=== PATIENT | male | born 1965 | race Caucasian/White ===

== ENCOUNTER 2016-12-03 14:00 | Inpatient (IN) | payer OTHER ==
--- NOTE | ~2016-12-03 | HP ---
History And Physical [address] [address] NAME: NILSA MERRILL : 65 STATUS : ADM IN [facility]#: [id number] AGE: 51 ADM/REG DATE : 12/03/16 MR#: [id number] REPORT SERV DATE: 12/03/16 DICTATED BY: DEMETRIUS KLINE DATE: 12/03/16 REPORT STATUS : Draft TRANSCRIBED BY: MODZeke DATE: 12/03/16 DATE OF ADMISSION: 12/03/2016 Seen in CVICU bed 14, transferred from [facility] at the request of Dr. Morejon. HISTORY OF PRESENT ILLNESS: The patient is a 51-year-old white male who last night woke up with pain going down his left side and radiating to his lower back and then mid abdomen. He apparently went to [facility] for help, was seen there, and was discovered to have a dissecting aortic aneurysm. He was transferred this afternoon by helicopter. The exact time of onset was unknown. The patient was placed on multiple drugs for blood pressure control, systolic of 220 to 125. There is no prior history of abdominal surgery adhesions, alcohol abuse, or peritoneal dialysis. No history of stones or immunosuppression. The patient does have a history of hypertension, takes blood pressure medications intermittently. He does smoke. He works at packing clothes. ALLERGIES: NO KNOWN ALLERGIES. REVIEW OF SYSTEMS: Otherwise negative and noncontributory. No history of vomiting, diarrhea, or melena. No endocrine problems. No tumor problems. No evidence of hematuria. All other review of systems negative. FAMILY HISTORY: Mother of what sounds like heart disease and sister of epilepsy and brother in car accident. SOCIAL HISTORY: He does smoke every day. Denies drug use. Denies alcohol use except for 5 drinks a day. The patient lives at home. PHYSICAL EXAMINATION: GENERAL: Currently, the patient is awake, alert, and oriented. VITAL SIGNS: Blood pressure 118/61, pulse 77, and saturation 98. HEENT: Head is normocephalic. Sclerae and conjunctivae are clear. Edentulous. NECK: Supple. Good carotid upstroke bilaterally. CHEST: Clear to auscultation and percussion. No wheezing or rhonchi. CARDIAC: S1 and S2. No murmurs or gallops. ABDOMEN: Soft and nontender. At this time, I could not feel any palpable masses. EXTREMITIES: No clubbing, cyanosis, or edema. Pulses appear to be palpable down below. NEUROLOGIC: Cranial nerves 2 through 12 are intact. Deep tendon reflexes normal. IMAGING STUDIES: No imaging studies accompanied the patient. EKG shows sinus rhythm. Possible right atrial enlargement. LABORATORY DATA: His laboratories show sodium 134, potassium 3.8, chloride 97, CO2 of 24, BUN 17, creatinine 0.9, glucose 141. Total protein 7.1, albumin 3.8, total bilirubin 0.9, alkaline phosphatase 86, AST 19, ALT 18. The patient's troponin was 0.200. H and H History And Physical [address] [address] NAME: NILSA MERRILL : 65 STATUS : ADM IN [facility]#: [id number] AGE: 51 ADM/REG DATE : 12/03/16 MR#: [id number] REPORT SERV DATE: 12/03/16 DICTATED BY: DEMETRIUS KLINE DATE: 12/03/16 REPORT STATUS : Draft TRANSCRIBED BY: MODL DATE: 12/03/16 apparently not done. We will repeat labs here. Awaiting imaging studies. Dr. Morejon is aware of the patient. RP/ALVAREZL Demetrius Kline M.D. / [id number] CC: Demetrius Kline M.D.
--- NOTE | ~2016-12-03 | CN ---
Consultation Report [facility] [address] [place]. [address] NAME: NILSA MERRILL : 65 STATUS : ADM IN PAT#: [id number] AGE: 51 ADM/REG DATE : 12/03/16 MR#: [id number] REPORT SERV DATE: 12/06/16 DICTATED BY: STEW TINAJERO DATE: 12/06/16 REPORT STATUS : Draft TRANSCRIBED BY: JOLYNN DATE: 12/06/16 PSYCHIATRIC CONSULTATION DATE OF CONSULTATION: 12/06/2016 I reviewed this patient's medical record. I discussed his status with his nurse. HISTORY OF PRESENT ILLNESS: He was admitted with a dissecting aortic aneurysm. Currently, he has been treated conservatively, by lowering his hypertension. Last night, he decided he wanted to leave AMA. He made a statement that raised concern for suicidal intent. He now consistently denies any suicidal intent. He said he did not remember making any suicidal statement. PAST PSYCHIATRIC HISTORY: No psychiatric issues. SOCIAL HISTORY: He lives in [place], [place]. 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 He lives with his fiancee, whose name is Radha. He said he also has a brother, Madhu, who also lives in [place]. MENTAL STATUS: He was awake and alert. He reported no significant pain. His mood was somewhat anxious. His affect was appropriate. He had a severe speech impediment, which limited his ability to communicate. His thinking was logical. He had no delusions. He had no hallucinations. He was oriented to "November"- "the "-"the hospital in [place]." He was oriented to persons. He had a fairly good understanding of his illness. He said he had "a blood vessel that might burst." He knew the treatment was focused on lowering his blood pressure, which would make a burst less likely. He knew he could from this condition. He knew that leaving AMA would make his demise more likely. He said he had changed his mind about leaving. He now planned on staying in the hospital until he was discharged. He had no suicidal intent. DIAGNOSIS: Adjustment disorder with anxious mood. RECOMMENDATIONS: I agree with Librium. If he again decides to leave AMA, he should be allowed to do so as he has the capacity to make this decision. ROVERTO/JOLYNN Stew Tinajero M.D. / [id number] CC: Consultation Report [place] [address] [place]. [address] NAME: NILSA MERRILL ELLYN : 65 STATUS : ADM IN PAT#: [id number] AGE: 51 ADM/REG DATE : 12/03/16 MR#: [id number] REPORT SERV DATE: 12/06/16 DICTATED BY: STEW TINAJERO DATE: 12/06/16 REPORT STATUS : Draft TRANSCRIBED BY: JOLYNN DATE: 12/06/16 Kory Luevano M.D. NO PCP
--- NOTE | ~2016-12-03 | CN ---
Consultation Report [place] [id number] [facility] [place]. [address] NAME: NILSA MERRILL : 65 STATUS : ADM IN PAT#: [id number] AGE: 51 ADM/REG DATE : 12/03/16 MR#: [id number] REPORT SERV DATE: 12/09/16 DICTATED BY: STERLING MOREJON DATE: 12/09/16 REPORT STATUS : Draft TRANSCRIBED BY: MODZeke DATE: 12/09/16 CONSULT NOTE DATE OF CONSULTATION: 12/03/2016 REASON FOR CONSULTATION: Evaluation for aortic dissection. BRIEF HISTORY: The patient is a 51-year-old gentleman with past medical history that is unremarkable, but does not routinely seek medical care. He presented to [facility] with sudden onset of pain going down his left side and radiating towards his back and abdomen. He went to [facility] and underwent CT scan that demonstrated an aortic dissection. I was consulted by telephone. He was transferred over to the hospital under the service of the Critical Care Service and I was consulted for evaluation and treatment. The patient denies any complaints now. In the interval since his transfer, his blood pressure has been controlled. PAST MEDICAL HISTORY: None. SURGICAL HISTORY: None. SOCIAL HISTORY: He smokes. He drinks five drinks daily. He denies any drug use. FAMILY HISTORY: Heart disease and seizure disorder. MEDICATIONS: Documented on the chart and were reviewed. ALLERGIES: NONE. REVIEW OF SYSTEMS: A complete review of systems was performed and is negative with the exception of the aforementioned findings. PHYSICAL EXAMINATION: VITAL SIGNS: Documented on the chart and were reviewed. GENERAL: The patient is awake, alert, oriented. No apparent distress. HEAD AND NECK: His head and neck examination is benign without any carotid bruits. He is a little disheveled. HEART: Regular rate and rhythm. LUNGS: Clear. ABDOMEN: Soft, nontender, nondistended with nonaneurysmal aorta. EXTREMITIES: He has a normal complement of upper extremity pulses without any significant edema or ischemic ulcerations. He has palpable femoral, popliteal, and pedal pulses. He has no significant edema or ischemic ulcerations. NEUROLOGIC: Grossly nonfocal. Consultation Report [place] [id number] [facility] [place]. [address] NAME: NILSA MERRILL : 65 STATUS : ADM IN PAT#: [id number] AGE: 51 ADM/REG DATE : 12/03/16 MR#: [id number] REPORT SERV DATE: 12/09/16 DICTATED BY: STERLING MOREJON DATE: 12/09/16 REPORT STATUS : Draft TRANSCRIBED BY: JOLYNN DATE: 12/09/16 MUSCULOSKELETAL: Otherwise, benign. LABORATORY DATA: His laboratory investigations reveal no significant abnormalities. I reviewed his CT imaging. The imaging is suboptimal. It looks like he has an aortic dissection, this extending from the mid thoracic aorta down words. The proximal portion is not well visualized, but is clear that there is no ascending aorta component. Both lumens feed the celiac and SMA. The right renal artery comes off the true lumen. The left renal artery comes off the false lumen. The dissection persisted down the iliacs and into the right common femoral artery. There is no evidence of rupture. There is no aneurysmal change. ASSESSMENT AND PLAN: It looks like this gentleman has a type-B aortic dissection. He needs tight blood pressure and heart rate control. I have spoken to Dr. Luevano about this. Our goal heart rate is less than 60, although this may be a little difficult to achieve. His blood pressure goal would be less than 120. We will plan on reimaging him about a week. URBANO/JOLYNN Sterling Morejon M.D. / [id number] CC: Samson Saldaña M.D.
--- NOTE | ~2016-12-03 | DS ---
Discharge Summary [place] [id number] [facility] [place]. [address] NAME: NILSA MERRILL : 65 STATUS : DIS IN PAT#: [id number] AGE: 51 ADM/REG DATE : 12/03/16 MR#: [id number] REPORT SERV DATE: 12/11/16 DICTATED BY: DATE: REPORT STATUS : Draft TRANSCRIBED BY: MODL DATE: 12/10/16 ADMISSION DATE: 12/03/2016 DISCHARGE DATE: 12/10/2016 DISCHARGE DIAGNOSES: 1. Type B aortic dissection. 2. Tobacco/alcohol abuse. 3. Adjustment disorder. 4. Bowel regimen. CONSULTATIONS: 1. Dr. Sterling Morejon, Vascular Surgery. 2. Dr. Stew Espana, Psychiatry. PERTINENT TESTS AND PROCEDURES: 1. Chest x-ray, 12/04/2016, impression: Lungs clear with normal vasculature. No effusion identified. Bones intact. 2. Transthoracic echocardiogram, 12/04/2016, summary: Technically difficult study due to limited acoustic windows. Normal left ventricular size and systolic function. Estimated ejection fraction 55%. Normal right ventricular size and systolic function. Normal aortic root size measuring 3.5 cm. No significant valve disease. No previous echocardiogram available for comparison. 3. Duplex Doppler, 11/30/2016, impression: Aorta measures 2.9 cm in greatest dimension. This is the proximal abdominal aorta. The more superior aspects of the abdominal aorta demonstrates what appears to be a dissection from the descending thoracic aorta. 4. CTA of chest, abdomen, and pelvis, 12/06/2016, impression:. a. Type B aortic dissection extending from level of the origin of left subclavian artery to the level of right common femoral artery on the right and to the left of the external iliac artery on the left. b. The patient has an aberrant right subclavian artery and both subclavian arteries appear to be supplied by the true lumen. Dissection extends into the celiac artery as well as into the superior mesenteric artery with a false lumen thrombosed within the proximal superior mesenteric artery producing at least moderate stenosis of the proximal superior mesenteric artery. Right renal artery is supplied by the true lumen and left renal artery is supplied by the false lumen. Inferior mesenteric artery is supplied by the false lumen. c. Mild edema in the fat in the retroperitoneum surrounding the abdominal aorta. d. The aorta appears nonaneurysmal. e. Very large left renal cyst measuring up to 12 cm in size with something calcified septations in its medial aspect. No enhancing suspicious nodular component seen. f. No acute pulmonary pathology appreciated. g. Normal enhancement of abdominal disrobed without evidence for areas of infarction. h. Small low-attenuation lesions in the liver with appearance of cyst Discharge Summary [place] [address] [id number] [place]. [address] NAME: NILSA MERRILL : 65 STATUS : DIS IN PAT#: [id number] AGE: 51 ADM/REG DATE : 12/03/16 MR#: [id number] REPORT SERV DATE: 12/11/16 DICTATED BY: DATE: REPORT STATUS : Draft TRANSCRIBED BY: MODL DATE: 12/10/16 measuring up to 10 mm in segment 2. i. Gallbladder appears mildly thickened likely due to underdistention without surrounding pericholecystic inflammatory change. CHIEF COMPLAINT UPON ADMISSION: The patient was transferred from [facility] to [facility] CVICU for complaints of left-sided abdominal pain radiating to back. HOSPITAL COURSE: 1. Please refer to history and physical dated 12/03/[address] Kory Luevano for complete details. The patient's initial presentation upon admission and health history. 2. Please also refer to consultations dated 12/06/[address] Stew Espana, Psychiatry, and 12/09/2016, provided by Dr. Mroejon, Vascular Surgery for additional details pertaining to events occurring during this hospital admission. Briefly, the patient is a 51-year-old male who was transferred to [facility] from [facility] on 12/03/2016 for further evaluation and treatment of a dissecting aortic aneurysm. The patient was transferred by helicopter. The patient was admitted to CVICU and Vascular Surgery was consulted for evaluation of aortic dissection. Per Vascular Surgery surgeons review of CT imaging, it was reported that the patient had an aortic dissection extending from the mid thoracic aorta downwards. Proximal portion was not well visualized, but it is clear that there was no descending aorta component. Both lumens feed the celiac and SMA. Right renal artery comes off the true lumen. Left renal artery comes off the false lumen. The dissection persisted down the iliacs and into the right common femoral artery. No evidence of rupture. No aneurysmal change. Vascular Surgery's recommendation for management of type B aortic dissection included tight blood pressure and heart rate control. Goal heart rate is less than 60 and goal systolic blood pressure less than 120. No surgical intervention indicated at this time. The patient was transferred from CVICU to the floor on 12/08/2016, in stable condition. Since that time, the patient has had no new complaints of abdominal or back pain. The patient is tolerating new blood pressure medications without difficulty. 1. Type B aortic dissection. The patient's blood pressure is stable at 109/56 and heart rate is stable at 60. The patient's goal is systolic blood pressure less than 120 and heart rate less than 60. The patient has been receiving hydrochlorothiazide 12.5 mg tablet p.o. daily, lisinopril 40 mg tablet p.o. daily, metoprolol tartrate 50 mg tablet p.o. twice daily, and clonidine 0.2 mg tablet p.o. every eight hours. The patient has tolerated these medications without adverse events. The patient's systolic blood pressure has remained below 120 and heart rate has ranged from mid 50s to 60. The patient has remained asymptomatic for hypotension or bradycardia. These medications will be continued on an outpatient basis to maintain tight control of blood pressure and heart rate. Home health has been requested for vital sign checks Saturday through Saturday in addition to assistance with medication management. 2. Tobacco/alcohol abuse. The patient reports having smoked one and half to two packs of Discharge [address] [address] NAME: NLISA MERRILL : 65 STATUS : DIS IN PAT#: [id number] AGE: 51 ADM/REG DATE : 12/03/16 MR#: [id number] REPORT SERV DATE: 12/11/16 DICTATED BY: DATE: REPORT STATUS : Draft TRANSCRIBED BY: MODL DATE: 12/10/16 cigarettes per day for the past 20 years and consumes at least five beers daily. The patient was counseled extensively on increased risk associated with continuing tobacco and alcohol use in the setting of aortic dissection. The patient stated he knew it would be difficult to stop using alcohol and tobacco, but stated he was very willing to try in light of his current health status. The patient states family members have agreed to assist with his attempts of tobacco and alcohol cessation. 3. Adjustment disorder. The patient was evaluated by Dr. Stew Espana, Psychiatry, on 12/06/2016, when the patient decided he wanted to leave the hospital against medical advice. The patient made a statement that raised concern for suicidal intent with staff. Psychiatric review was completed and it was determined that the patient had the capacity to make his own decisions. The patient stated he understood that he could from his condition and knew that leaving AMA would make his demise more likely. The patient decided to stay in the hospital until discharge and denied any suicidal intent. The patient was diagnosed with adjustment disorder with anxious mood and was placed on short-term Librium. The patient tolerated Librium without difficulty and is being tapered on a slow wean to end in 3 weeks status post discharge. The patient has no signs or symptoms of depression or uncontrolled anxiety related to his current health state. The patient understands that his condition is extremely serious and has participated in education to assist him with successful maintenance of care at home. 4. Bowel regimen. The patient was advised to avoid constipation. He will be discharged with MiraLAX 17 g p.o. daily and Senokot p.r.n. DISCHARGE CONDITION: At the time of discharge, the patient is hemodynamically stable. DISCHARGE MEDICATIONS: 1. Librium 10 mg one tablet p.o. every 12 hours x1 week, then one tablet p.o. daily x1 week, then one-half tab to equal 5 mg p.o. daily x1 week, then stop. 2. Colace 100 mg tablet p.o. twice daily. Hold for diarrhea. 3. HCTZ 12.5 mg tablet p.o. daily. 4. Prinivil 40 mg tablet p.o. daily. 5. Pvgi-wtk-cgkkmna vitamin one tablet p.o. daily. 6. Metoprolol tartrate 50 mg tablet p.o. twice daily. 7. MiraLAX 17 g p.o. daily, hold for diarrhea. 8. Clonidine 0.2 mg tablet p.o. every eight hours. 9. Dulcolax 5 mg tablet, take two tablets p.o. daily as needed for constipation. 10.Aleve 220 mg tablet p.o. every 12 hours. The patient was instructed to abstain from taking any NSAID or medication that could increase risk of bleeding secondary to new diagnosis of aortic dissection. DISCHARGE INSTRUCTIONS: 1. Follow up with primary care provider, Dr. Jackson, PCP, [facility], 12/20/2016 at 9 a.m. 2. Follow up with Dr. Bk Chauhan, Vascular Surgery, in one month, appointment date and time pending. The patient was educated on benefits related to smoking and tobacco cessation. The patient was instructed to call 911 immediately for any additional acute onset of abdominal/back Discharge Summary [place] [address] [place]. [address] NAME: NILSA MERRILL : 65 STATUS : DIS IN PAT#: [id number] AGE: 51 ADM/REG DATE : 12/03/16 MR#: [id number] REPORT SERV DATE: 12/11/16 DICTATED BY: DATE: REPORT STATUS : Draft TRANSCRIBED BY: MODL DATE: 12/10/16 pain, syncopal or near syncopal events, chest pain, shortness of breath, or any other signs or symptoms that are deviations from his baseline health status at the time of this discharge. AUSTYN/JOLYNN MI Morgan / [id number] CC: Samson Saldaña M.D.
[2016-12-03] MEDS ORDERED: ALEVE220 MG PO (15:43)
[2016-12-03 17:42] LABS: CHOL/HDL RATIO(NOT ORDER) 2.8 (0-5); FREE T4 0.96 NG/DL (0.76-1.46); ULTRASENSITIVE TSH 0.726 MCIU/ML (0.358-3.740)
[2016-12-04 03:59] LABS: BASOPHILS 0.1 %; BASOPHILS ABSOLUTE 0.01 10/3/uL (0.0-0.16); EOSINOPHILS 0.3 %; EOSINOPHILS ABSOLUTE 0.05 10/3/uL (0.0-0.53); HEMATOCRIT 38.3 % (40.0-51.0); IMMATURE GRANULOCYTES 0.4 %; IMMATURE GRANULOCYTES ABSOLUTE 0.06 10/3/uL (0.0-0.11); LYMPHOCYTES 10.5 %; LYMPHOCYTES ABSOLUTE 1.55 10/3/uL (0.67-4.30); MEAN CORPUS HGB CONC 33.9 g/dL (32.0-36.0); MEAN CORPUSCULAR HEMOGLOB 32.7 pg (26.0-34.0); MEAN CORPUSCULAR VOLUME 96.5 fL (80-100); MEAN PLATELET VOLUME 9.9 fL (9.2-13.0); MONOCYTES 7.8 %; MONOCYTES ABSOLUTE 1.15 10/3/uL (0.21-1.20); NEUTROPHILS 80.9 %; NEUTROPHILS ABSOLUTE 11.91 10/3/uL (2.02-8.40); PLATELET COUNT 163 10/3/uL (150-400); RBC DISTRIBUTION WIDTH 12.5 % (12.0-16.0); RED CELL COUNT 3.97 10/6/uL (4.7-6.1); WHITE BLOOD CELLS 14.7 10/3/uL (4.5-10.5)
[2016-12-04 04:00] LABS: MANUAL DIFF NO %
[2016-12-04 04:16] LABS: BUN (BLOOD UREA NITROGEN) 17 MG/DL (6-23); CALCIUM, SERUM 8.1 MG/DL (8.5-10.4); CHLORIDE, SERUM 101 MMOL/L (96-112); CO2 (CARBON DIOXIDE) 28 MMOL/L (24-34); CREATININE 0.89 MG/DL (0.70-1.30); GFR AFRICAN AMERICAN 115 ML/MIN (>=60); GFR NON AFRICAN AMERICAN 99 ML/MIN (>=60); GLUCOSE, SERUM 116 MG/DL (60-99); SODIUM, SERUM 138 MMOL/L (135-148)
[2016-12-05 04:19] LABS: BASOPHILS 0.2 %; BASOPHILS ABSOLUTE 0.02 10/3/uL (0.0-0.16); EOSINOPHILS 0.9 %; EOSINOPHILS ABSOLUTE 0.11 10/3/uL (0.0-0.53); HEMATOCRIT 40.9 % (40.0-51.0); HEMOGLOBIN 13.4 g/dL (13.6-17.8); IMMATURE GRANULOCYTES 0.3 %; IMMATURE GRANULOCYTES ABSOLUTE 0.04 10/3/uL (0.0-0.11); LYMPHOCYTES 14.3 %; LYMPHOCYTES ABSOLUTE 1.79 10/3/uL (0.67-4.30); MANUAL DIFF NO %; MEAN CORPUS HGB CONC 32.8 g/dL (32.0-36.0); MEAN CORPUSCULAR HEMOGLOB 32.5 pg (26.0-34.0); MEAN CORPUSCULAR VOLUME 99.3 fL (80-100); MONOCYTES 10.3 %; MONOCYTES ABSOLUTE 1.29 10/3/uL (0.21-1.20); NEUTROPHILS ABSOLUTE 9.29 10/3/uL (2.02-8.40); PLATELET COUNT 158 10/3/uL (150-400); RBC DISTRIBUTION WIDTH 12.9 % (12.0-16.0); RED CELL COUNT 4.12 10/6/uL (4.7-6.1); WHITE BLOOD CELLS 12.5 10/3/uL (4.5-10.5)
[2016-12-05 04:34] LABS: BUN (BLOOD UREA NITROGEN) 15 MG/DL (6-23); CALCIUM, SERUM 8.6 MG/DL (8.5-10.4); CHLORIDE, SERUM 104 MMOL/L (96-112); CO2 (CARBON DIOXIDE) 30 MMOL/L (24-34); CREATININE 0.87 MG/DL (0.70-1.30); GFR AFRICAN AMERICAN 116 ML/MIN (>=60); GFR NON AFRICAN AMERICAN 100 ML/MIN (>=60); GLUCOSE, SERUM 94 MG/DL (60-99); POTASSIUM, SERUM 4.3 MMOL/L (3.5-5.3); SODIUM, SERUM 141 MMOL/L (135-148)
[2016-12-07 03:59] LABS: BUN (BLOOD UREA NITROGEN) 19 MG/DL (6-23); CALCIUM, SERUM 8.7 MG/DL (8.5-10.4); CHLORIDE, SERUM 101 MMOL/L (96-112); CO2 (CARBON DIOXIDE) 31 MMOL/L (24-34); CREATININE 1.02 MG/DL (0.70-1.30); GFR AFRICAN AMERICAN 98 ML/MIN (>=60); GFR NON AFRICAN AMERICAN 85 ML/MIN (>=60); GLUCOSE, SERUM 103 MG/DL (60-99); POTASSIUM, SERUM 3.9 MMOL/L (3.5-5.3); SODIUM, SERUM 141 MMOL/L (135-148)
[2016-12-08 04:30] LABS: BASOPHILS 0.3 %; BASOPHILS ABSOLUTE 0.03 10/3/uL (0.0-0.16); EOSINOPHILS 2.4 %; EOSINOPHILS ABSOLUTE 0.25 10/3/uL (0.0-0.53); HEMATOCRIT 42.7 % (40.0-51.0); HEMOGLOBIN 14.4 g/dL (13.6-17.8); IMMATURE GRANULOCYTES 0.4 %; IMMATURE GRANULOCYTES ABSOLUTE 0.04 10/3/uL (0.0-0.11); LYMPHOCYTES 20.6 %; LYMPHOCYTES ABSOLUTE 2.11 10/3/uL (0.67-4.30); MANUAL DIFF NO %; MEAN CORPUS HGB CONC 33.7 g/dL (32.0-36.0); MEAN CORPUSCULAR VOLUME 97.7 fL (80-100); MEAN PLATELET VOLUME 10.2 fL (9.2-13.0); MONOCYTES 10.4 %; MONOCYTES ABSOLUTE 1.06 10/3/uL (0.21-1.20); NEUTROPHILS 65.9 %; NEUTROPHILS ABSOLUTE 6.74 10/3/uL (2.02-8.40); PLATELET COUNT 164 10/3/uL (150-400); RBC DISTRIBUTION WIDTH 12.5 % (12.0-16.0); RED CELL COUNT 4.37 10/6/uL (4.7-6.1); WHITE BLOOD CELLS 10.2 10/3/uL (4.5-10.5)
[2016-12-08 05:03] LABS: CALCIUM, SERUM 8.8 MG/DL (8.5-10.4); CHLORIDE, SERUM 101 MMOL/L (96-112); CO2 (CARBON DIOXIDE) 29 MMOL/L (24-34); CREATININE 1.08 MG/DL (0.70-1.30); GFR AFRICAN AMERICAN 92 ML/MIN (>=60); GFR NON AFRICAN AMERICAN 79 ML/MIN (>=60); GLUCOSE, SERUM 104 MG/DL (60-99); POTASSIUM, SERUM 3.9 MMOL/L (3.5-5.3); SODIUM, SERUM 137 MMOL/L (135-148)
[2016-12-08 05:04] LABS: BUN (BLOOD UREA NITROGEN) 28 MG/DL (6-23)
[2016-12-09 06:54] LABS: BASOPHILS 0.4 %; BASOPHILS ABSOLUTE 0.04 10/3/uL (0.0-0.16); EOSINOPHILS 3.4 %; EOSINOPHILS ABSOLUTE 0.33 10/3/uL (0.0-0.53); HEMATOCRIT 38.6 % (40.0-51.0); HEMOGLOBIN 13.1 g/dL (13.6-17.8); IMMATURE GRANULOCYTES 0.3 %; IMMATURE GRANULOCYTES ABSOLUTE 0.03 10/3/uL (0.0-0.11); LYMPHOCYTES 25.4 %; LYMPHOCYTES ABSOLUTE 2.48 10/3/uL (0.67-4.30); MEAN CORPUS HGB CONC 33.9 g/dL (32.0-36.0); MEAN CORPUSCULAR HEMOGLOB 32.6 pg (26.0-34.0); MONOCYTES 11.2 %; MONOCYTES ABSOLUTE 1.09 10/3/uL (0.21-1.20); NEUTROPHILS 59.3 %; NEUTROPHILS ABSOLUTE 5.78 10/3/uL (2.02-8.40); PLATELET COUNT 194 10/3/uL (150-400); RBC DISTRIBUTION WIDTH 12.6 % (12.0-16.0); RED CELL COUNT 4.02 10/6/uL (4.7-6.1); WHITE BLOOD CELLS 9.8 10/3/uL (4.5-10.5)
[2016-12-09 06:57] LABS: MANUAL DIFF NO %
[2016-12-09 07:10] LABS: BUN (BLOOD UREA NITROGEN) 25 MG/DL (6-23); CALCIUM, SERUM 8.9 MG/DL (8.5-10.4); CHLORIDE, SERUM 100 MMOL/L (96-112); CO2 (CARBON DIOXIDE) 31 MMOL/L (24-34); GFR AFRICAN AMERICAN 81 ML/MIN (>=60); GFR NON AFRICAN AMERICAN 70 ML/MIN (>=60); GLUCOSE, SERUM 100 MG/DL (60-99); POTASSIUM, SERUM 4.2 MMOL/L (3.5-5.3); SODIUM, SERUM 138 MMOL/L (135-148)
[2016-12-10] MEDS ORDERED: L10 PO (14:55)
[2016-12-10] MEDS ORDERED: DSS PO (14:56)
[2016-12-10] MEDS ORDERED: HCTZ12.5 PO (14:57)
[2016-12-10] MEDS ORDERED: LISINOPRIL40 MG PO (14:58)
[2016-12-10] MEDS ORDERED: LOP50 PO (14:59)
[2016-12-10] MEDS ORDERED: MIRALAX POWDER1 PKT PO (15:00)
[2016-12-10] MEDS ORDERED: CAT2 PO (15:06)
[2016-12-10] MEDS ORDERED: BIST PO (15:13)
== END 2016-12-10 17:58 | disposition home health service (06) | DRG 301 ==
LOC: CVICU 14:00 → 4EA 12-08 14:52
PROVIDERS: Internal Medicine Critical Care Medicine
DX: I71.02 Dissection of abdominal aorta (principal); N28.1 Cyst of kidney, acquired; I10 Essential (primary) hypertension; F17.210 Nicotine dependence, cigarettes, uncomplicated; F43.22 Adjustment disorder with anxiety; F10.10 Alcohol abuse, uncomplicated
CPT/HCPCS: 71010; 71275; 74174; 80048; 80061; 84439; 84443; 85025; 90686; 93306; 93978; A9270-GY; G0008; J2405; J3010; J3486; Q9967